=== PATIENT | female | born 1975 | race Caucasian/White ===

== ENCOUNTER 2019-11-09 19:14 | Emergency (ER) | payer BC ==
[~2019-11-09] VITALS: Ht 167.6 cm; Wt 63.5 kg
[2019-11-09 19:15] VITALS: BP 140/94
--- NOTE | 2019-11-09 19:20 | NUR ---
ONEL WHITE AT BEDSIDE
[2019-11-09] MEDS ORDERED: GELATIN SPONGE,ABSORBABLE 1 SPONGE SPONGE TP ONE (19:56)
--- NOTE | 2019-11-09 20:47 | NUR ---
Patient discharged to home in stable condition. Written and verbal after care instructions given. Patient verbalizes understanding of instruction.
== END 2019-11-09 20:51 | disposition home or self-care (01) ==
LOC: ER 19:16
DX: S61.211A Laceration without foreign body of left index finger without damage to nail, initial encounter (principal); Z88.2 Allergy status to sulfonamides; W26.0XXA Contact with knife, initial encounter; Y93.89 Activity, other specified; Y92.89 Other specified places as the place of occurrence of the external cause; Y99.8 Other external cause status

== ENCOUNTER 2019-11-11 15:43 | Emergency (ER) | payer BC ==
[~2019-11-11] VITALS: Ht 167.6 cm; Wt 63.5 kg
[2019-11-11 16:20] VITALS: BP 149/80
--- NOTE | 2019-11-11 17:07 | NUR ---
PT PROVIDED W/ WOUND CARE AND DRESSING CHANGE. D/C IN STABLE COND.
== END 2019-11-11 17:09 | disposition home or self-care (01) ==
LOC: ER 15:44
DX: S61.211D Laceration without foreign body of left index finger without damage to nail, subsequent encounter (principal); Z88.2 Allergy status to sulfonamides; X58.XXXD Exposure to other specified factors, subsequent encounter